=== PATIENT | female | born 1960 | race Caucasian/White ===

== ENCOUNTER → 2017-05-22 12:29 | Outpatient (CLI) | payer BC | END | disposition home or self-care (01) | LOC: D.CT 12:29 | DX: I73.9 Peripheral vascular disease, unspecified (principal) ==

== ENCOUNTER → 2019-06-28 08:27 | Outpatient (CLI) | payer MEDICAID | END | disposition home or self-care (01) | LOC: D.CT 06-22 08:30 | PROVIDERS: ATTEND Family Medicine Adult Medicine | DX: I70.203 Unspecified atherosclerosis of native arteries of extremities, bilateral legs (principal) ==